=== PATIENT | male | born 1995 | race Caucasian/White ===

== ENCOUNTER 2020-08-20 12:17 | Emergency (ER) | payer OTHER, SELFPAY ==
[2020-08-20 12:21] VITALS: BP 166/96; PULSE 105; RESP 18; TEMP 36.6; O2SAT 98
[2020-08-20 12:32] LABS: Basophils Percent Auto 0.2 % (0.2-1.2); Eosinophils Absolute Auto 0.2 K/mm3 (0-0.3); Eosinophils Percent Auto 2.5 % (0-4.4); Hemoglobin 15.8 g/dL (14.0-18.0); Immature Granulocyte Absolute 0.03 K/mm3 (0.00-0.031); Immature Granulocyte Percent A 0.3 % (0-0.5); Lymphocytes Absolute Auto 1.72 K/mm3 (0.9-3.2); Lymphocytes Percent Auto 19.9 % (18.3-44.2); Mean Corpuscular HGB Conc 33.6 g/dl (32-36); Mean Corpuscular Volume 86.2 fl (80-100); Mean Platelet Volume 8.8 fl (7.4-10.4); Monocytes Absolute Auto 0.6 K/mm3 (0.1-0.6); Monocytes Percent Auto 7.3 % (2.6-8.5); Neutrophils Percent Auto 69.8 % (45.5-73.1); Platelet Count Result 289 k/mm3 (150-375); Red Blood Count 5.45 M/mm3 (4.6-6.20); Red Cell Distribution Width 12.9 % (11.5-14.5); White Blood Count 8.6 K/mm3 (4.5-10.0)
[2020-08-20] MEDS: SODIUM CHLORIDE 0.9% IV 1,000 ML 999 ML IV CONT (12:33)
[2020-08-20 12:44] LABS: Alanine Aminotransferase 98 U/L (4-50); Albumin Level 4.4 g/dL (3.5-5.1); Alkaline Phosphatase 54 U/L (38-126); Anion Gap 8 mmol/L (8-16); Aspartate Amino Transferase 53 U/L (17-59); Bilirubin,Total 0.8 mg/dL (0.2-1.3); Blood Urea Nitrogen 12 mg/dL (9-20); Calcium 9.6 mg/dL (8.4-10.2); Carbon Dioxide 29 mmol/L (22-30); Chloride 99 mmol/L (98-107); Estimated CRCL calculation 138 ml/min; Estimated Glomerular Filt Rate > 60; Glucose 94 mg/dL (75-110); Lipase 29 U/L (23-300); Sodium 136 mmol/L (137-145)
[2020-08-20 12:47] LABS: Add Urine Microscopic? NO; Appearance Urine Clear (Clear); Bilirubin Urine Negative (Negative); Blood Urine Negative (Negative); Color Urine Straw (Yellow); Glucose Urine UA Negative (Negative); Ketones Urine Negative (Negative); Leukocyte Esterase Ur Negative LEU/UL (Negative); Nitrate Urine Negative (Negative); Protein Urine Negative (Negative); Urobilinogen Urine Negative mg/dL (<2.0)
--- NOTE | 2020-08-20 13:19 | ED.GENADULT ---
HPI - General Adult General Chief complaint: Abdominal Pain Stated complaint: abd pain Time Seen by Provider: 08/20/20 12:25 Source: patient History of Present Illness HPI narrative: Patient is a 25 y/o male complaining of diarrhea for last 3 days ago. He describes his diarrhea as watery and he states that he had up to 30 episode during last 24 hours. He took some OTC antidiarrheal medication which helped some. He has no vomiting. He has intermittent generalized cramping abdominal pain. He states that he gets abdominal cramp when he has diarrhea. However, he does not have any abdominal pain at this time. Related Data Home Medications Medication Instructions Recorded Confirmed No Home Medications 08/20/20 08/20/20 Allergies Allergy/AdvReac Type Severity Reaction Status Date / Time No Known Allergies Allergy Verified 08/20/20 12:31 Review of Systems Constitutional: Constitutional: Denies chills, Denies fever(s), Denies headache(s) and Denies weakness Eyes: Eyes: Denies blurry vision ENT: Denies headache(s) and Denies neck pain Cardiovascular: Cardiovascular: Denies chest pain and Denies dyspnea Respiratory: Respiratory: Denies cough and Denies dyspnea Gastrointestinal: Gastrointestinal: Reports abdominal pain, Reports diarrhea, Denies nausea and Denies vomiting Genitourinary: Genitourinary: Denies hematuria and Denies dysuria Musculoskeletal: Musculoskeletal: Denies back pain and Denies neck pain Neurologic: Denies headache(s) and Denies weakness [facility] Social History Social History Alcohol intake: never Exam Const: General: no acute distress and well developed Orientation/consciousness: oriented to person, oriented to place, oriented to time and patient oriented x3 HENMT: Head: normocephalic Ears: external ears normal General nose exam: Normal external nose present Eyes: General: appearance normal, both eyes and all related structures Conjunctivae: conjunctivae normal Neck: Neck: normal visual inspection and full ROM Chest: Chest palpation & inspection: normal inspection of the chest and no tenderness Resp: Effort & Inspection: normal respiratory effort Auscultation: clear to auscultation bilaterally Cardio: Rate: regular rate Rhythm: regular rhythm GI: GI Palp: No abdominal tenderness and Yes Soft to palpation Skin: General skin exam: normal color and turgor normal Neuro: General: oriented to person, oriented to place, oriented to time and patient oriented x3 Cognition (Neuro): normal cognition Extrem: General: normal to inspection, full ROM and no pedal edema Psych: Appearance: grossly normal Mental Status: mental status grossly normal Affect: normal affect Course Vital Signs Vital signs: Vital Signs Temperature 36.6 C 08/20/20 12:21 Pulse Rate 105 H 08/20/20 12:21 Respiratory Rate 18 08/20/20 12:21 Blood Pressure 166/96 H 08/20/20 12:21 Pulse Oximetry 98 08/20/20 12:21 Temperature 36.6 C 08/20/20 12:21 Pulse Rate 105 H 08/20/20 12:21 Respiratory Rate 18 08/20/20 12:21 Blood Pressure 166/96 H 08/20/20 12:21 Pulse Oximetry 98 08/20/20 12:21 Medical Decision Making Vital Signs Vital Signs: Vital Signs Temperature 36.6 C 08/20/20 12:21 Pulse Rate 105 H 08/20/20 12:21 Respiratory Rate 18 08/20/20 12:21 Blood Pressure 166/96 H 08/20/20 12:21 Pulse Oximetry 98 08/20/20 12:21 Temperature 36.6 C 08/20/20 12:21 Pulse Rate 105 H 08/20/20 12:21 Respiratory Rate 18 08/20/20 12:21 Blood Pressure 166/96 H 08/20/20 12:21 Pulse Oximetry 98 08/20/20 12:21 Lab Data Result diagrams: 08/20/20 12:26 08/20/20 12:26 Labs: Lab Results 08/20/20 08/20/20 08/20/20 Range/Units 12:26 12:26 12:33 WBC 8.6 (4.5-10.0) K/mm3 RBC 5.45 (4.6-6.20) M/mm3 Hgb 15.8 (14.0-18.0) g/dL Hct 47.0 (42.0-52.0) % MCV 86.2 (80-1
[2020-08-20] MEDS: LOPERAMIDE HCL 2 MG CAPSULE PO (13:33)
[2020-08-20 23:29] LABS: SARS-CoV-2 RNA PCR Negative
== END 2020-08-20 14:41 | disposition home or self-care (01) ==
PROVIDERS: Emergency Provider Emergency Medicine
DX: R19.7 Diarrhea, unspecified (principal); Z20.822 Contact with and (suspected) exposure to COVID-19; I10 Essential (primary) hypertension
CPT/HCPCS: 36415; 80053; 81003; 83690; 85025; 96360; 99283; A9270; C9803; J7030; U0003

== ENCOUNTER 2022-07-06 18:55 | Emergency (ER) | payer OTHER, SELFPAY ==
[2022-07-06 19:10] VITALS: BP 149/75; PULSE 117; RESP 20; TEMP 37.6; O2SAT 98
--- NOTE | 2022-07-06 20:00 | ED.URI ---
HPI - URI/Sore Throat General Chief Complaint: Upper Respiratory Infection Stated Complaint: fever aches headache cough sore throat Time Seen by Provider: 07/06/22 19:54 Source: patient and RN notes reviewed Mode of arrival: ambulatory Limitations: no limitations History of Present Illness HPI Narrative: 27-year-old female presents with concern for cough, chills, sweats, body aches, nausea, fever that started yesterday. Reports he has been taking some [id number] medications with mild relief. MD elicited complaint: cough and sore throat Related Data Allergies Allergy/AdvReac Type Severity Reaction Status Date / Time No Known Allergies Allergy Verified 07/06/22 19:52 Review of Systems Review of Systems: CONSTITUTIONAL: Reports malaise, chills, sweats, or fever. EYES: Denies visual changes, redness, or discharge. ENT: Reports rhinorrhea, congestion, sore throat. Denies sinus pain, otalgia CARDIOVASCULAR: Denies chest pain, palpitations, or edema. RESPIRATORY: Reports cough. Denies dyspnea. GASTROINTESTINAL: Denies abdominal pain, nausea, vomiting, diarrhea SKIN: Denies rash or itching. MUSCULOSKELETAL: Reports myalgia. NEUROLOGIC: Denies headache. All systems reviewed & are unremarkable except as noted in HPI and below PMFSH Social History Social History Alcohol intake: never Comments At time of signature, agree with nursing past medical, surgical, social and family history. There is no relevant family history pertinent to the presenting complaint Exam Narrative: GENERAL: Nontoxic-appearing and in no acute distress. HEAD: Normocephalic EYES: PERRLA, conjunctivae clear ENT: Nares clear, clear discharge. Mucous membranes moist. TM pearly syed with dull light reflex bilaterally; no tragal tenderness. Oropharynx not erythematous without lesions. Tonsils not enlarged and without exudate, no drooling, no hoarseness, no trismus, uvula midline. NECK: Supple. No lymphadenopathy CHEST: Clear to auscultation, breath sounds equal. No wheezing, rhonchi, rales, or stridor. No respiratory distress, speaks in full sentences. HEART: Regular rate and rhythm. No murmur heard. SKIN: Warm, dry, no rash. NEURO: Alert and oriented x3. PSYCH: Normal mood and affect Course Course Emergency Course: Patient is aware of diagnosis, understands and agrees to treatment plan. Anticipatory guidance given. Patient agrees to follow-up as directed and is aware of reasons to seek care at the emergency department. Portions of this record may have been created with voice recognition software Level of Care: Express Care Visit Vital Signs Vital signs: Vital Signs Temperature 99.6 F 07/06/22 19:10 Pulse Rate 117 H 07/06/22 19:10 Respiratory Rate 20 07/06/22 19:10 Blood Pressure 149/75 H 07/06/22 19:10 Pulse Oximetry 98 07/06/22 19:10 Oxygen Delivery Room Air 07/06/22 19:10 Temperature 99.6 F 07/06/22 19:10 Pulse Rate 117 H 07/06/22 19:10 Respiratory Rate 20 07/06/22 19:10 Blood Pressure 149/75 H 07/06/22 19:10 Pulse Oximetry 98 07/06/22 19:10 Oxygen Delivery Room Air 07/06/22 19:10 Reviewed. MDM - URI/Sore Throat MDM Narrative Medical decision making narrative: Differential diagnosis considered: Kendrick virus, strep pharyngitis, allergic rhinitis, upper respiratory tract infection, sinusitis, rhinosinusitis, nasopharyngitis. viral pharyngitis, otitis media, otitis externa, pneumonia, bronchitis, viral cough syndrome, viral syndrome, and influenza. Exam findings show no acute concerns or changes; patient is non-toxic appearing and is in no distress. Patient is appropriate for outpatient treatment and follow-up. Lab Data Attestation: I reviewed the patient's lab results. Labs: Influenza A Screen Positive Reference Range: Negative Influenza B Screen Negative
== END 2022-07-06 20:10 | disposition home or self-care (01) ==
PROVIDERS: Emergency Provider Nurse Practitioner
DX: J10.1 Influenza due to other identified influenza virus with other respiratory manifestations (principal)
CPT/HCPCS: 87804; 99213; G0463